=== PATIENT | male | born 1980 | race Caucasian/White ===

== ENCOUNTER 2019-05-07 10:14 | Day surgery (SDC) | payer MEDICARE, OTHER, SELFPAY ==
[2019-04-26 10:04] LABS: Hemoglobin 14.8 g/dL (13.0-16.5); Mean Corp Hgb Conc 32.9 g/dL (32-36); Mean Corpuscular Hgb 29.1 pg (27.0-32.0); Mean Corpuscular Volume 88.6 fL (80-94); Mean Platelet Vol. 9.8 fl (6.2-12.0); Platelet Count 254 K/mm3 (150-450); RBC Distribution Width CV 12.5 % (11.6-14.6); RBC Distribution Width SD 40.8 fl (35.1-43.9); Red Blood Count 5.08 M/mm3 (4.6-6.2); White Blood Count 5.6 K/mm3 (4.4-11.0)
[2019-04-26 10:22] LABS: Hemoglobin A1c 6.4 % (4.2-6.3)
[2019-04-26 10:45] LABS: Anion Gap 5 (5-15); BUN 15 mg/dL (7-18); BUN/Creat Ratio 12.9 RATIO (10-20); Calcium,Total 8.6 mg/dL (8.5-10.1); Chloride 104 mmol/L (98-107); Creatinine, Serum 1.16 mg/dL (0.70-1.30); EST Glomerular Filtration Rate 74 mL/min (>60); Est Glom Filt Rate - Afr Amer 90 mL/min (>60); Glucose 188 mg/dL (74-106); Potassium 4.2 mmol/L (3.5-5.1); Sodium Level 136 mmol/L (136-145); Thyroid Stim Hormone (TSH) 0.32 uIU/mL (0.358-3.74)
[2019-05-07] VITALS (8 sets, daily range): BP systolic 112–142; BP diastolic 65–99; PULSE 86–102; RESP 16–18; TEMP 36.5–36.9; O2SAT 90–99; BMI 25.9
--- NOTE | 2019-05-07 10:23 | EKG12_ITS ---
Test Reason : PRE-OP Blood Pressure : / mmHG Vent. Rate : 089 BPM Atrial Rate : 089 BPM P-R Int : 146 ms QRS Dur : 088 ms QT Int : 370 ms P-R-T Axes : 049 019 031 degrees QTc Int : 450 ms Normal sinus rhythm Normal ECG Confirmed by JENISE LEBRON, HERLINDA ([id number]), editor newspaper MARLI ZAMUDIO ([id number]) on 05/09/2019 2:26:46 PM Referred By: Ez Santoyo Confirmed By:HERLINDA BURDEN MD
[2019-05-07 10:55] LABS: Bedside Glucose 146 mg/dL (70-110)
[2019-05-07] MEDS: Lactated Ringers 1,000 ML 100 ML IV ×2 (11:01→13:14)
--- NOTE | 2019-05-07 11:19 | PCM.DC ---
You will use the following diet at home:: Regular Discharge Activity: - - No noseblowing Additional Activity Instructions:: Start nasal saline spray tomorrow (05/08/19). Use 3 sprays each nostril 3x/day Allergies/Adverse Reactions: Allergies No Known Allergies Allergy (Verified 04/09/19 11:12) Medications to take at Discharge Bupropion HCl [Bupropion Xl] 300 mg PO QHS 04/11/17 Duloxetine Hcl [Cymbalta] 30 mg PO QHS 04/11/17 Eszopiclone 3 mg PO QHS 04/11/17 Levothyroxine [Synthroid] 125 mcg PO DAILY 04/11/17 RX: metFORMIN HCl [Glucophage] 1,000 mg PO BID 04/11/17 Dextroamphetamine/Amphetamine [Adderall 20 mg Tablet] 20 mg PO DAILY 04/09/19 Hydrocodone/Acetaminophen [Vicodin 5-300 mg Tablet] 1 tab PO Q4H PRN PRN 04/09/19 RX: Ibuprofen 600 mg PO PRN PRN 04/09/19 RX: Omeprazole 40 mg PO QHS 04/09/19 cycloBENZAPRine HCl [Flexeril] 10 mg PO TID PRN PRN 04/09/19 Orders to be completed after discharge: 12 Lead EKG [CVS] Time Frame: 04/09/19, Facility: [facility], Location: Cardiovascular Services Primary Care Physician: Trent Villalta MD [Primary Care Provider] - Test Results: Test results from this visit will be discussed in further detail at your follow-up appointment, if applicable.
[2019-05-07] MEDS: Oxymetazoline 0.05% 1 SPRAY SPRAY.BTL 15 SPRAY (11:45)
--- NOTE | 2019-05-07 11:45 | SEP_PTH ---
PATIENT: JAZMINE MCDONALD LOC: [facility] [place] U#:[id number] AGE/SX: 38/M ROOM: RE05/07/[address]: Dr. Ez Santoyo MD : [id number] BED: DIS: 05/07/2019 SPEC #: [id number] RECD: 05/07/19 14:50 STATUS: ALTA MELANIA #: [id number] ANDREA: 05/07/19 11:[address]: Ez Santoyo DEPT: SURGICAL PATHOLOGY RECD BY: Mayuri Larios ENTERED: 05/07/19 15:15 SP TYPE: SEPTUM OTHR DR: Dr. Trent Villalta MD Tissues: Nasal septum, NOS Procedures: Decalcification bone/plaque Surgery Specimen Level III HEADER OPERATION: Septoplasty, bilateral lateral, bilateral inferior turbinate PRE-OP DIAGNOSIS: Hypertrophy of nasal turbinates, deviated nasal septum; acquired nose deformity TISSUE SUBMITTED: Nasal septum and cartilage MICROSCOPIC DIAGNOSIS Nasal septum and cartilage, septoplasty: Reactive and reparative change (clinically deviated septum). YOUNG:darien 05/08/19 MICROSCOPIC DESCRIPTION Slides are reviewed. GROSS DESCRIPTION Received in fixative is one container labeled with the patient's name and designated nasal septum and cartilage. The specimen consists of multiple pieces of cartilage and bone that in aggregate measure 3.5 x 3 x 1 cm. Wave Soldering Machine Operator tissue is submitted in one cassette after decalcification. / SJ:darien 05/07/19 TC:5 [facility]: [id number]
[2019-05-07] MEDS: Mupirocin Ointment 22gm Tube 1 APPLIC (12:00)
--- NOTE | 2019-05-07 12:37 | OP.PCM_ITS ---
Report of Operation Date of Procedure: 05/07/19 Pre-Operative Diagnosis: nasal airway obstruction. deviated septum. inferior turbinate hypertrophy. external nasal valve collapse Post-Operative Diagnosis: same Surgery/Procedure Performed:: Septoplasty. Submucous resection inferior turbinates bilaterally. 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 He was placed in the supine position on the OR table and given sufficient general endotracheal anesthesia. The head of bed was elevated slightly. He was draped steriley. 1% lidocaine with epinephrine was injected into the septum bilaterally, nasal floor, columella, and anterior aspect of the inferior turbinates bilaterally. After sufficient vasoconstriction, a right hemistransfixtion incision was made with a 15 blade. The mucoperichondrium was elevated off of the quandrangular cartilage with a freer elevator on the left. In this way, an anterior and posterior tunnel were created. The rio cartilaginous junction was with a freer elevator. A posterior tunnel was created on the right. Considerable time was spent elevating the mucosa off of a large right posterior rio spur. The rio septum was removed with open [place] banuelos forceps. The spur was removed and a rent was placed in the mucosa on the right posteriorly. The cartilaginous septum was taken off of the maxillary crest. The crest was taken down with a hammer and chisel. I then scored the quadrangular cartilage with a 15 blade. I freed the cartilaginous septum off of the nasal spine anteriorly to move this to the right. This provided excellent midline positioning of the septum. Next, an incision was made at the anterior aspect of the right inferior turbinate with a 15 blade at the mucocutaneous junction. A submucous plane was established with a Rick elevator. Submucous resection was carried out with a microdebrider. The incision was closed with 4-0 chromic. I then placed an incision at the anterior aspect of the left inferior turbinate with a 15 blade at the mucocutaneous junction. A submucous plane was established with a Rick elevator. Submucous resection was carried out with a microdebrider. The incision was closed with 4-0 chromic. Next, the Latera guide was used to line up the implant. A marker was used in the holes of the guide. I then loaded the Latera implant per protocol. Next, I placed the needle lateral to the lower lateral cartilage on the right and pointing toward the septum. I then thread the needle superiorly along the marked guide points. Once in the correct position, the implant was deployed. I then checked the implant site and there was no evidence of the implant coming through the stab incision. Next, the Latera guide was used to line up the implant on the left. A marker was used in the holes of the guide. I then loaded the Latera implant per protocol. Next, I placed the needle lateral to the lower lateral cartilage on the left and pointing toward the septum. I then thread the needle superiorly along the marked guide points. Once in the correct position, the implant was deployed. I then checked the implant site and there was no evidence of the implant coming through the stab incision. Nohelia was placed on the turbinates and in the septum. Hemostasis was ensured bilaterally. The septal flaps were re draped. The incision was closed with interrupted 4-0 chromic. Anderson nasal splints were applied to each side of the septum and sewn through and through with 3-0 silk. The procedure was terminated. The patient was awoken and brought to the recovery room in stable condition. Blood loss minimal, replacement none. Sponge, needle and instrument count were correct at the end of the procedure.
[2019-05-07 13:10] LABS: Bedside Glucose 201 mg/dL (70-110)
== END 2019-05-07 14:46 | disposition home or self-care (01) ==
LOC: SDC 10:16 → AC 10:16
PROVIDERS: Family Provider Family Medicine; PCP Family Medicine; Referring Provider Otolaryngology; Visit Provider Otolaryngology
PROC: (CPT 30520; principal; 2019-05-07 11:30)
DX: J34.2 Deviated nasal septum (principal); J34.3 Hypertrophy of nasal turbinates; M95.0 Acquired deformity of nose; Z79.84 Long term (current) use of oral hypoglycemic drugs; Z79.899 Other long term (current) drug therapy; Z87.891 Personal history of nicotine dependence
CPT/HCPCS: 00160; 30140; 30520; 36415; 80048; 82962; 83036; 84443; 85027; 88304; 88311; 93005; J7120; J2405

== ENCOUNTER 2021-07-16 18:47 | Emergency (ER) | payer MEDICARE, OTHER, SELFPAY ==
[2021-07-16 18:48] VITALS: BP 153/104; PULSE 102; RESP 16; TEMP 36.9; O2SAT 100; BMI 24.4
--- NOTE | 2021-07-16 19:30 | EKG12_ITS ---
Test Reason : CP Blood Pressure : / mmHG Vent. Rate : 101 BPM Atrial Rate : 101 BPM P-R Int : 134 ms QRS Dur : 088 ms QT Int : 348 ms P-R-T Axes : 062 067 062 degrees QTc Int : 451 ms Sinus tachycardia Otherwise normal ECG Confirmed by JENISE LEBRON, HERLINDA ([id number]), digital editor PAIGE BOO ([id number]) on 07/17/2021 10:51:34 AM Referred By: ANNIKA Confirmed By:HERLINDA BURDEN MD
--- NOTE | 2021-07-16 19:43 | RAD_ITS ---
STUDY: X-RAY CHEST REASON FOR EXAM: Male, 40 years old. chest pain TECHNIQUE: AP portable COMPARISON: 04/11/2017 FINDINGS: The lungs are clear and expanded. There is no demonstrated pleural abnormality. Normal size heart. Normal mediastinum and valentin. Normal visualized pulmonary arteries. Normal visualized aortic arch and descending thoracic aorta. Normal visualized thoracic spine. Normal visualized ribs, clavicles, and shoulders. There is no demonstrated abnormality of the visualized soft tissue structures of the upper abdomen. RAD/Chest 1 View (Portable) IMPRESSION: Normal x-ray examination of the chest. Electronically Signed: Mayo Recio MD at 20:18 EST , Service support ,
[2021-07-16 19:56] LABS: Absolute Lymphocyte Count 2.16 X10^3/uL (0.83-4.51); Absolute Neutrophil Count 4.4 X10^3/uL (2.0-7.7); Basophil# 0.05 X10^3/uL; Basophil% 0.7 % (0-1); Eosinophil# 0.13 X10^3/uL; Eosinophils% 1.7 % (0-5); Hematocrit 45.1 % (40-54); Hemoglobin 14.7 g/dL (13.0-16.5); Lymphocyte # 2.16 X10^3/ul (0.83-4.51); Lymphocyte % 28.7 % (19-41); Mean Corp Hgb Conc 32.6 g/dL (32-36); Mean Corpuscular Hgb 26.2 pg (27.0-32.0); Mean Corpuscular Volume 80.2 fL (80-94); Mean Platelet Vol. 9.4 fl (6.2-12.0); Monocyte# 0.73 X10^3/uL; Monocyte% 9.7 % (0-10); NRBC Flagged by Analyzer 0 % (0-5); Neutrophil # 4.43 X10^3/uL (2.7-7.7); Neutrophil % 58.9 % (47-70); Platelet Count 348 K/mm3 (150-450); RBC Distribution Width CV 13.6 % (11.6-14.6); RBC Distribution Width SD 39.7 fl (35.1-43.9); Red Blood Count 5.62 M/mm3 (4.6-6.2); White Blood Count 7.5 K/mm3 (4.4-11.0)
[2021-07-16] MEDS: Aspirin 81 MG TAB.CHEW 324 MG PO (19:57)
[2021-07-16 20:08] LABS: D-Dimer Quantitative (DVT/PE) < 0.27 FEU/ug/m (0.27-0.49)
[2021-07-16 20:12] LABS: Anion Gap 9 (5-15); BUN 17 mg/dL (7-18); BUN/Creat Ratio 14.9 RATIO (10-20); Calcium,Total 9.1 mg/dL (8.5-10.1); Chloride 103 mmol/L (98-107); Creatinine, Serum 1.14 mg/dL (0.70-1.30); EST Glomerular Filtration Rate 75 mL/min (>60); Est Glom Filt Rate - Afr Amer 91 mL/min (>60); Glucose 150 mg/dL (74-106); Potassium 3.8 mmol/L (3.5-5.1); Sodium Level 138 mmol/L (136-145); Troponin-I HS 4 pg/mL (3.0-78.0)
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
[2021-07-16 21:00] VITALS: BP 139/105; PULSE 88; RESP 18; O2SAT 95
[2021-07-16 21:57] LABS: Troponin-I HS 4 pg/mL (3.0-78.0)
[2021-07-16 22:23] VITALS: BP 126/84; PULSE 82; RESP 19; O2SAT 96
== END 2021-07-16 22:27 | disposition home or self-care (01) ==
PROVIDERS: Emergency Provider Student in an Organized Health Care Education/Training Program; PCP Family Medicine
DX: R07.89 Other chest pain (principal); E11.9 Type 2 diabetes mellitus without complications; Z79.84 Long term (current) use of oral hypoglycemic drugs; Z87.891 Personal history of nicotine dependence
CPT/HCPCS: 71045; 80048; 84484; 85025; 85379; 93005; 99283; A4216

== ENCOUNTER → 2023-04-12 | Outpatient (CLI) | payer MEDICARE, OTHER, SELFPAY ==
--- NOTE | 2023-04-12 09:49 | NM_ITS ---
CLINICAL: 42-year-old male with history of low back pain and suspected postlaminectomy syndrome. WHOLE BODY 99m Tc MDP RADIONUCLIDE BONE SCINTIGRAPHY COMPARISON: None available FINDINGS: Following the intravenous administration of 26.6 mCi of 99m Tc MDP, whole body bone images reveal: 1. Subtle increased tracer concentration is defined in the fourth lumbar vertebra posteriorly on the left and right, symmetric in presentation. 2. Enhanced uptake is noted in the acromioclavicular and sternoclavicular compartments of both shoulders, the bilateral elbows, the patellofemoral compartments of both knees, centrally defined in the first thoracic vertebra. 3. The remaining skeletal structures are scintigraphically unremarkable with normal-appearing renal images and urinary bladder activity identified. Increased uptake is noted in the bilateral maxilla commensurate with periostitis and/or periodontal disease. NM/Bone Scan Whole Body IMPRESSION: 1. The increase in radiopharmaceutical concentration defined in the fourth lumbar vertebra posteriorly on the left and right may be secondary to postlaminectomy syndrome-pseudoarthrosis. 2. Degenerative arthritis is defined in the bilateral shoulder and elbow articulations, both knees, first thoracic vertebra. Electronically Signed: Ezekiel Scott DO at 22:03 EDT ,
== END | disposition home or self-care (01) ==
LOC: NM 09:48
PROVIDERS: PCP Family Medicine; Referring Provider Orthopaedic Surgery; Visit Provider Orthopaedic Surgery
DX: M96.1 Postlaminectomy syndrome, not elsewhere classified (principal)
CPT/HCPCS: 78306; A9503

== ENCOUNTER 2024-01-15 19:27 | Emergency (ER) | payer MEDICARE, OTHER, SELFPAY ==
[2024-01-15 19:27] VITALS: BP 142/102; PULSE 108; RESP 18; TEMP 36.9; O2SAT 100; BMI 26.3
[2024-01-15 19:37] VITALS: BP 143/91; PULSE 106; RESP 16; TEMP 36.7; O2SAT 96
--- NOTE | 2024-01-15 19:39 | EKG12_ITS ---
Test Reason : [facility] [place] Blood Pressure : / mmHG Vent. Rate : 103 BPM Atrial Rate : 103 BPM P-R Int : 150 ms QRS Dur : 088 ms QT Int : 360 ms P-R-T Axes : 043 032 037 degrees QTc Int : 471 ms Sinus tachycardia Otherwise normal ECG Confirmed by KELBY LEBRON, CESAR ([id number]), content editor PAIGE BOO ([id number]) on 01/16/2024 10:08:49 AM Referred By: Confirmed By:CESAR LAMA MD
--- NOTE | 2024-01-15 19:41 | EDS_ITS ---
HPI HPI - Psych History of Present Illness Chief Complaint: Mental Health Narrative Narrative: 43-year-old male past medical history of depression and anxiety, PTSD, diabetes, chronic back pain presents with local [facility] because of suicidal ideation and threats. Per patient, he admits to drinking alcohol today, but states he is here because of a misunderstanding. Per [employer], [place] to another male. Reportedly, patient became upset and was yelling at her about respect/disrespect. He had stated to her that it would not matter any longer because he was not going to be here in the future. [place] left [place] on [place] walk, and was picked up by the [facility] department. He had been followed by his family because he has had previous suicide attempts. Patient states that he has not been hospitalized for psychiatric reasons since he was in the , but family had stated otherwise to the [facility]. He was brought to the emergency department for suicidal ideation and threats. Patient denies any somatic complaints. He states he follows up with psychiatry in [place]. [facility] Medical History Depression Diabetes type 2, controlled Home Medications ?Medication ?Instructions ?Recorded ?Last Taken ?Type bupropion HCl 300 mg 24 hr tablet, 300 mg PO QHS 04/11/17 04/10/17 History extended release duloxetine 30 mg capsule,delayed 30 mg PO QHS 04/11/17 04/11/17 History release eszopiclone 2 mg tablet 3 mg PO QHS 04/11/17 04/10/17 History levothyroxine 137 mcg tablet 125 mcg PO DAILY 04/11/17 04/10/17 History metformin 1,000 mg tablet 1,000 mg PO BID 04/11/17 04/11/17 History cyclobenzaprine 10 mg tablet 10 mg PO TID PRN PRN Muscle Spasm 04/09/19 Unknown History dextroamphetamine-amphetamine 20 20 mg PO DAILY 04/09/19 Unknown History mg tablet hydrocodone 5 mg-acetaminophen 300 1 tab PO Q4H PRN PRN Pain 04/09/19 Unknown History mg tablet ibuprofen 600 mg tablet 600 mg PO PRN PRN Pain 04/09/19 Unknown History omeprazole 40 mg capsule,delayed 40 mg PO QHS 04/09/19 Unknown History release Allergy/AdvReac Type Severity Reaction Status Date / Time No Known Allergies Allergy Verified 01/15/24 19:27 Surgical History History of ankle surgery H/O knee surgery H/O cervical spine surgery Social History Smoking Status: Former smoker ROS ROS ED ROS Narrative Constitutional: No fever, no chills. HEENT: No sore throat. No neck pain. No loss of vision. No rhinorrhea. Cardiovascular: No chest pain. No palpitations. No pedal edema. Respiratory: No cough, no shortness of breath. Abdominal: No abdominal pain. No nausea. No vomiting. Genitourinary: No dysuria. No hematuria. Musculoskeletal: No myalgias. No arthralgias. Neurologic: No headaches. No dizziness. No lightheadedness. Skin: No rash. No change in color. Psychiatric: No depression. No anxiety. Patient currently denies suicidal ideation, stating that this is a misunderstanding and misinterpretation by his spouse. EXAM Physical Exam Narrative Exam Narrative: Afebrile. Vital signs noted. HEENT: Normocephalic. Atraumatic. PERRL, EOMI. Neck soft and supple. No point tenderness or step off. Cardiovascular: Regular rate and rhythm. No murmurs, rubs, or gallops appreciated. Respiratory: No tachypnea. Lungs clear to auscultation bilaterally. Gastrointestinal: Abdomen soft, nontender, with normoactive bowel sounds. No rebound or guarding. Neurological: Awake. Alert. Nonfocal, nonlateralizing. Skin: No rash. Normal color. No pallor. Musculoskeletal: No pedal edema. Full range of motion extremities. Const Vital Signs: 01/15/24 19:27 01/15/24 19:37 01/15/24 20:36 Temperature 98.4 F 98.1 F Temperature Source Temporal Temporal Pulse Rate 108 H 106 H Respiratory Rate 18 16 16 Blood Pressure 142/102 H 143/91 H Blood Pressure Mean 115 108 Pulse Ox 100 96 Oxygen Delivery Method Room Air Room Air 01/15/24 23:07 Temperature 97 F L Temperature Source Temporal Pulse Rate 89 Respiratory Rate 16 Blood Pressure 126/77 H Blood Pressure Mean 93 Pulse Ox 100 Oxygen Delivery Method Room Air MDM MDM MDM Narrative Medical decision making narrative: Medical screening labs will be obtained. Patient has been pink slipped by . Currently, I do not feel he has the capacity to sign out AMA as I suspect that as he has admitted to drinking alcohol today, that he might have an elevated level above intoxication. I reviewed his laboratory work and he is neutropenic and 4.3 which I think is nonspecific, hemoglobin low at 7.6. However, I do not feel that he requires blood transfusion currently. Last laboratory values were from 2020. Platelet count is normal at 302. Review of his electrolyte panel shows chloride elevated at 108, glucose appropriately elevated at 126 with a normal anion gap of 10 so I do not think he is in diabetic ketoacidosis. LFTs are grossly unremarkable. Urine for drugs of abuse is positive for amphetamines and MDMA. He is on bupropion. Initial ethyl alcohol level is 138. After 2 hours it is only come down to 107. After an extra hour, his blood alcohol level is 85. At this point in time, I feel he is medically cleared for evaluation by the crisis counselor. Patient is currently pending evaluation by crisis counselor. He will be signed out to Dr. George Duncan to make final disposition on this patient. S His disposition is currently pending. He is in stable condition. History & Record Review Discussion w/independent historian: Patient Lab Data Attestation: I reviewed the patient's lab results. Labs: Laboratory Results - last 24 hr 01/15/24 01/15/24 01/15/24 19:53 20:06 22:00 WBC 4.3 L RBC 4.14 L Hgb 7.6 L Hct 27.4 L MCV 66.2 L MCH 18.4 L MCHC 27.7 L RDW Std Deviation 42.4 RDW Coeff of Lalo 17.8 H Plt Count 302 MPV 8.8 Immature Gran % (Auto) 0.200 Neut % (Auto) 51.6 Lymph % (Auto) 36.0 [place] % (Auto) 9.0 Eos % (Auto) 2.5 Baso % (Auto) 0.7 Absolute Neuts (auto) 2.2 Absolute Lymphs (auto) 1.56 Nucleated RBC % 0 Sodium 139 Potassium 3.9 Chloride 108 H Carbon Dioxide 21.0 Anion Gap 10 BUN 13 Creatinine 1.00 Estim Creat Clear Calc 103.47 Est GFR (MDRD) Af Amer 105 Est GFR (MDRD) Non-Af 87 BUN/Creatinine Ratio 13.1 Glucose 126 H Calcium 8.7 Total Bilirubin 0.30 AST 24 ALT 28 Alkaline Phosphatase 81 Total Protein 7.7 Albumin 4.0 Globulin 3.7 Albumin/Globulin Ratio 1.1 Urine Opiates Screen NEGATIVE Urine Methadone Screen NEGATIVE Ur Barbiturates Screen NEGATIVE Ur Phencyclidine Scrn NEGATIVE Ur Amphetamines Screen POSITIVE H MDMA (Ecstasy) Screen POSITIVE H U Benzodiazepines Scrn NEGATIVE Urine Cocaine Screen NEGATIVE U Cannabinoids Screen NEGATIVE Ur Drug Screen Comment Ethyl Alcohol 138.0 107.0 01/15/24 23:02 WBC RBC Hgb Hct MCV MCH MCHC RDW Std Deviation RDW Coeff of Lalo Plt Count MPV Immature Gran % (Auto) Neut % (Auto) Lymph % (Auto) [place] % (Auto) Eos % (Auto) Baso % (Auto) Absolute Neuts (auto) Absolute Lymphs (auto) Nucleated RBC % Sodium Potassium Chloride Carbon Dioxide Anion Gap BUN Creatinine Estim Creat Clear Calc Est GFR (MDRD) Af Amer Est GFR (MDRD) Non-Af BUN/Creatinine Ratio Glucose Calcium Total Bilirubin AST ALT Alkaline Phosphatase Total Protein Albumin Globulin Albumin/Globulin Ratio Urine Opiates Screen Urine Methadone Screen Ur Barbiturates Screen Ur Phencyclidine Scrn Ur Amphetamines Screen MDMA (Ecstasy) Screen U Benzodiazepines Scrn Urine Cocaine Screen U Cannabinoids Screen Ur Drug Screen Comment Ethyl Alcohol 85.0 Discharge Plan Triage Chief Complaint: Mental Health ED Provider: Jonny Acharya Dx/Rx/DC Orders Prescriptions: No Action levothyroxine 137 MCG tablet 125 mcg PO DAILY metformin 1,000 MG tablet 1,000 mg PO BID Patient Comments: bupropion HCl 300 MG tablet extended release 24 hr 300 mg PO QHS duloxetine 30 MG capsule 30 mg PO QHS eszopiclone 2 MG tablet 3 mg PO QHS Patient Comments: cyclobenzaprine 10 MG tablet 10 mg PO TID PRN PRN (Reason: Muscle Spasm) omeprazole 40 MG capsule,delayed release(DR/EC) 40 mg PO QHS dextroamphetamine-amphetamine 20 MG tablet 20 mg PO DAILY ibuprofen 600 MG tablet 600 mg PO PRN PRN (Reason: Pain) hydrocodone-acetaminophen 1 EACH tablet 1 tab PO Q4H PRN PRN (Reason: Pain) Primary Care Provider: Trent Villalta Referrals: Trent Villalta MD [Primary Care Provider] - Print Language: Faroese
[2024-01-15 20:00] LABS: Absolute Lymphocyte Count 1.56 X10^3/uL (0.83-4.51); Absolute Neutrophil Count 2.2 X10^3/uL (2.0-7.7); Basophil# 0.03 X10^3/uL; Basophil% 0.7 % (0-1); Eosinophil# 0.11 X10^3/uL; Eosinophils% 2.5 % (0-5); Hematocrit 27.4 % (40-54); Hemoglobin 7.6 g/dL (13.0-16.5); Lymphocyte # 1.56 X10^3/ul (0.83-4.51); Mean Corp Hgb Conc 27.7 g/dL (32-36); Mean Corpuscular Hgb 18.4 pg (27.0-32.0); Mean Corpuscular Volume 66.2 fL (80-94); Mean Platelet Vol. 8.8 fl (6.2-12.0); Monocyte# 0.39 X10^3/uL; NRBC Flagged by Analyzer 0 % (0-5); Neutrophil # 2.23 X10^3/uL (2.7-7.7); Neutrophil % 51.6 % (47-70); Platelet Count 302 K/mm3 (150-450); RBC Distribution Width CV 17.8 % (11.6-14.6); RBC Distribution Width SD 42.4 fl (35.1-43.9); Red Blood Count 4.14 M/mm3 (4.6-6.2); White Blood Count 4.3 K/mm3 (4.4-11.0)
[2024-01-15 20:18] LABS: ALB/GLOB Ratio 1.1 RATIO (0.9-2.4); AST(SGOT) 24 U/L (15-37); Alanine Aminotransfer ALT/SGPT 28 U/L (16-61); Alkaline Phosphatase 81 U/L (45-117); Anion Gap 10 (5-15); BUN 13 mg/dL (7-18); BUN/Creat Ratio 13.1 RATIO (10-20); Calcium,Total 8.7 mg/dL (8.5-10.1); Chloride 108 mmol/L (98-107); EST Glomerular Filtration Rate 87 mL/min (>60); Est Glom Filt Rate - Afr Amer 105 mL/min (>60); Estimated Creatinine Clearance 103.47 ml/min; Globulin 3.7 g/dL (2.2-4.2); Glucose 126 mg/dL (74-106); Potassium 3.9 mmol/L (3.5-5.1); Protein, Total 7.7 g/dL (6.4-8.2); Sodium Level 139 mmol/L (136-145)
[2024-01-15 20:36] VITALS: RESP 16
[2024-01-15 20:45] LABS: Amphetamine Urine VISTA POSITIVE (<1000 ng/mL); Barbiturate Urine VISTA NEGATIVE (< 200 ng/mL); Benzodiazepine Urine VISTA NEGATIVE (< 200 ng/mL); Cocaine Urine VISTA NEGATIVE (< 300 ng/mL); Ecstacy Urine VISTA POSITIVE (< 500 ng/mL); Methadone Urine VISTA NEGATIVE (< 300 ng/mL); PCP Urine VISTA NEGATIVE (< 25 ng/mL); THC Urine VISTA NEGATIVE (< 50 ng/mL); Vista UDS pH Range 5
[2024-01-15 23:07] VITALS: BP 126/77; PULSE 89; RESP 16; TEMP 36.1; O2SAT 100
--- NOTE | 2024-01-16 00:16 | NURSING ---
CALLED CRISIS AT 0015 AND FAXED CHART
== END 2024-01-16 03:11 | disposition home or self-care (01) ==
PROVIDERS: Emergency Provider Emergency Medicine; PCP Family Medicine; Visit Provider Emergency Medicine
DX: F99 Mental disorder, not otherwise specified (principal); E11.9 Type 2 diabetes mellitus without complications; D70.9 Neutropenia, unspecified; F41.9 Anxiety disorder, unspecified; R45.851 Suicidal ideations; G89.29 Other chronic pain; M54.9 Dorsalgia, unspecified; Z87.891 Personal history of nicotine dependence; F43.10 Post-traumatic stress disorder, unspecified; F10.129 Alcohol abuse with intoxication, unspecified
CPT/HCPCS: 36415; 80053; 80307; 80320; 85025; 93005; 99282; G0480

== ENCOUNTER → 2024-11-12 | Outpatient (CLI) | payer MEDICARE, OTHER, SELFPAY ==
--- NOTE | 2024-11-12 14:00 | CT_ITS ---
PROCEDURE: LIMITED CHEST CT CARDIAC ONLY REASON FOR EXAM: SCREENING TECHNIQUE: Prone and supine chest CT without contrast,. One or more dose reduction techniques were used (e.g., Automated exposure control, adjustment of the mA and/or kV according to patient size, use of iterative reconstruction technique). COMPARISON: None FINDINGS: Hardware: None Lymph nodes: No mediastinal hilar or axillary lymphadenopathy. Heart and Vasculature: Normal heart size. No pericardial effusion. Thoracic aorta and pulmonary arteries have normal contours; noncontrast technique limits evaluation. Coronary Artery Calcifications: Absent Lungs and Airways: The lungs are normally expanded and clear. No septal thickening nodules or abnormal pulmonary opacities. Pleura: Unremarkable Upper Abdomen: Unremarkable Bones: Unremarkable CT/Limited Chest CT Cardiac Only IMPRESSION: Coronary artery calcification (CAC) is is absent Reading Location: [place] [id number]
--- NOTE | 2024-11-12 16:44 | CCTA_ITS ---
Calcium Scoring Date of Study:: 11/12/24 Indications Indications: Hypertension hyperlipidemia type 2 diabetes Coronary Calcium Scoring: High-resolution Computed Tomographic imaging of the chest was performed on [11/12/2024], with particular attention paid to the coronary arteries. Images from the examination were analyzed for the presence and extent of coronary artery calcification , using coronary calcium quantification software. The pa tient tolerated the procedure well and there were no complications. The results of the coronary calcification analysis are provided below. Findings Coronary Artery Left Main (LM): 0 Left Anterior Descending (LAD): 0 Left Circumflex (LCX): 0 Right Coronary Artery (RCA): 0 Total Agatston Score: 0 Percentile Rankin% Calcium Scoring Interpretation: Different methods to categorize the overall amount of coronary plaque. Overall amount CAC SIS Visual of coronary plaque P1 Mild -100 <2 1-2 vessels with mild amount of plaque P2 Moderate 101-300 3-4 1-2 vessels with moderate amount, 3 vessels with mild amount of plaque P3 Severe 301-999 5-7 3 vessels with moderate amount, 1 vessel with severe amount of plaque P4 Extensive >1000 >8 2-3 vessels with severe amount of plaque Conclusion: No atherosclerotic plaque noted.
== END | disposition home or self-care (01) ==
LOC: CT 13:50
PROVIDERS: PCP Family Medicine; Referring Provider Family Medicine; Visit Provider Family Medicine
DX: Z13.6 Encounter for screening for cardiovascular disorders (principal)
CPT/HCPCS: 75571; 76380